=== PATIENT | male | born 1975 ===

== ENCOUNTER 2023-09-15 13:23 | Emergency (ER) | payer MEDICAID ==
[2023-09-15] MEDS: Albuterol/Ipratropium 3.0-0.5 MG/3 ML Neb Soln NEB ONE (13:56)
[2023-09-15 14:03] LABS: BASOPHILS ABSOLUTE AUTO 0.08 K/uL (0.02-0.10); BASOPHILS PERCENT AUTO 0.5 % (0.0-0.5); EOSINOPHILS ABSOLUTE AUTO 0.27 K/uL (0.04-0.40); EOSINOPHILS PERCENT AUTO 1.6 % (1.0-5.0); HEMATOCRIT 53.4 % (40.0-54.0); LYMPHOCYTES ABSOLUTE AUTO 3.63 K/uL (1.50-4.00); LYMPHOCYTES PERCENT AUTO 21.7 % (20.0-40.0); MEAN CORPUSCULAR HEMOGLOBIN 32.5 pg (27.0-32.0); MEAN CORPUSCULAR HGB CONC 33.7 g/dL (31.0-35.0); MEAN CORPUSCULAR VOLUME 97 fL (76-96); MEAN PLATELET VOLUME 11.5 fL (6.0-10.0); MONOCYTES ABSOLUTE AUTO 1.82 K/uL (0.20-0.80); MONOCYTES PERCENT AUTO 10.9 % (3.0-10.0); NEUTROPHILS ABSOLUTE AUTO 10.96 K/uL (2.00-7.50); NEUTROPHILS PERCENT AUTO 65.3 % (45.0-70.0); PLATELET COUNT,PLT 258 K/uL (150-400); RED BLOOD CELL COUNT 5.53 M/uL (4.50-6.50); RED CELL DISTRIBUTION WIDTH 13.6 % (11.0-16.0); WHITE BLOOD CELL COUNT,WBC 16.8 K/uL (4.0-11.0)
[2023-09-15 14:10] VITALS: BP 147/97; PULSE 78
[2023-09-15] MEDS: guaiFENesin 600 MG Tab.ER PO ONE (14:11)
[2023-09-15 14:24] LABS: A/G RATIO 0.8 (0.8-2.0); ALBUMIN 3.4 g/dL (3.4-5.0); BILIRUBIN TOTAL 0.3 mg/dL (0.0-1.0); BUN/CREATININE RATIO 14.1 (6-25); CALCIUM 9.1 mg/dL (8.5-10.1); CARBON DIOXIDE,CO2 30.2 mmol/L (21.0-32.0); CREATININE 0.78 mg/dL (0.70-1.30); EST CRCL DRUG DOSING (CG) 133.19 mL/min; POTASSIUM,K 4.2 mmol/L (3.5-5.1); PROTEIN TOTAL,TP 7.5 g/dL (6.4-8.2)
[2023-09-15 14:44] LABS: INFLUENZA A NAA NEGATIVE (NEGATIVE); INFLUENZA B NAA NEGATIVE (NEGATIVE); RESPIRATORY SYNCYTIAL VIR NAA NEGATIVE (NEGATIVE)
[2023-09-15 14:45] LABS: CORONAVIRUS COVID-19 NAA NEGATIVE (NEGATIVE)
== END 2023-09-15 15:08 | disposition home or self-care (01) ==
LOC: LB.ED 13:23
DX: R09.89 Other specified symptoms and signs involving the circulatory and respiratory systems (principal); J98.8 Other specified respiratory disorders; D72.829 Elevated white blood cell count, unspecified; F17.210 Nicotine dependence, cigarettes, uncomplicated; Z88.0 Allergy status to penicillin; Z88.8 Allergy status to other drugs, medicaments and biological substances; Z79.899 Other long term (current) drug therapy; Z20.822 Contact with and (suspected) exposure to COVID-19
CPT/HCPCS: 0241U; 36415; 71045; 80053; 83605; 83735; 84484; 85025; 93005; 94640; 99285; A9270-GY; J7620